=== PATIENT | female | born 1975 | race Caucasian/White ===

== ENCOUNTER 2019-12-06 13:58 | Emergency (ER) | payer OTHER ==
[~2019-12-06] VITALS: Ht 157.5 cm; Wt 76.7 kg
[2019-12-06] MEDS ORDERED: ASA-EC81 MG (14:28)
[2019-12-06] MEDS ORDERED: ASPIR 8181 MG (14:31)
== END 2019-12-06 16:53 | disposition home or self-care (01) ==
LOC: ER 13:58
DX: R51 Headache (principal); F41.8 Other specified anxiety disorders